=== PATIENT | male | born 1935 | race Caucasian/White ===

== ENCOUNTER 2017-02-10 13:07 | Inpatient (IN) | payer OTHER ==
[~2017-02-10] VITALS: Ht 182.9 cm; Wt 77.6 kg
[2017-02-10 14:51] LABS: BASOPHIL % 0.6 % (0-2); PLATELET COUNT 141 x10^3mcL (130-400); RED CELL DISTRIBUTION WIDTH 14.3 % (11.5-14.5)
[2017-02-10 14:56] LABS: microscopic required? NO
[2017-02-10 15:14] LABS: UA SPECIFIC GRAVITY 1.015 (1.005-1.035)
[2017-02-10 15:14] LABS: ALKALINE PHOSPHATASE 93 U/L (46-116); ALT/SGPT 33 U/L (16-63); AST/SGOT 32 U/L (15-37); BILIRUBIN TOTAL 0.9 mg/dL (0.20-1.00); CALCIUM 8.2 mg/dL (8.5-10.1); CARBON DIOXIDE 25.3 mmol/L (21-32); CHLORIDE SERUM 106 mmol/L (98-107); CREATININE SERUM 0.8 mg/dL (0.7-1.3); GLUCOSE SERUM 109 mg/dL (74-106); MAGNESIUM 1.8 mg/dL (1.8-2.4); PHOSPHOROUS 2.4 mg/dL (2.5-4.9); POTASSIUM SERUM 3.7 mmol/L (3.5-5.1); SODIUM SERUM 136 mmol/L (136-145); TOTAL PROTEIN, SERUM 6.5 g/dL (6.4-8.2)
[2017-02-10 15:15] LABS: ALBUMIN 3.2 g/dL (3.4-5.0); CHOLESTEROL 116 mg/dL (<200); HDL CHOLESTEROL 67 mg/dL (40-60)
[2017-02-10 15:16] LABS: urine erythrocyte NEGATIVE (NEGATIVE)
[2017-02-10] MEDS ORDERED: DIGOXIN0.125 M1 PO (17:24)
[2017-02-10] MEDS ORDERED: SPIRONOLACTONE25 MG PO (17:25)
[2017-02-10] MEDS ORDERED: NAMZARIC1 ECC PO (17:26)
[2017-02-10] MEDS ORDERED: DONEPEZIL HYDRO10 M2 PO (17:28)
[2017-02-10 18:12] VITALS: BP 161/98
[2017-02-10 18:21] VITALS: Ht 182.9 cm; Wt 77.6 kg
[2017-02-10 19:41] LABS: T3 TOTAL 0.8 ng/mL
[2017-02-10 19:52] LABS: CHOLESTEROL/HDL RATIO 1.6
[2017-02-10 20:07] LABS: FREE T4 1.24 ng/dL (0.76-1.46); FREE THYROXINE INDEX 2.5 ug/dL (1.4-4.5); T4(THYROXINE) 6.7 ug/dL (4.7-13.3)
[2017-02-10 20:54] VITALS: BP 148/79
[2017-02-11 06:30] LABS: BASOPHIL % 0.5 % (0-2); PLATELET COUNT 149 x10^3mcL (130-400); RED CELL DISTRIBUTION WIDTH 14.2 % (11.5-14.5)
[2017-02-11 06:33] VITALS: BP 143/95
[2017-02-11 06:33] LABS: CALCIUM 8.8 mg/dL (8.5-10.1); CHLORIDE SERUM 107 mmol/L (98-107); GLUCOSE SERUM 105 mg/dL (74-106); MAGNESIUM 1.9 mg/dL (1.8-2.4); PHOSPHOROUS 2.8 mg/dL (2.5-4.9); POTASSIUM SERUM 4.4 mmol/L (3.5-5.1); SODIUM SERUM 141 mmol/L (136-145)
[2017-02-11 10:02] VITALS: BP 146/90
[2017-02-11 12:40] VITALS: BP 164/94
[2017-02-11 17:15] VITALS: BP 144/81
[2017-02-11 21:17] VITALS: BP 124/70
[2017-02-12 05:58] VITALS: BP 135/67
[2017-02-12 09:31] VITALS: BP 135/83
[2017-02-12 13:30] VITALS: BP 118/68
[2017-02-12 14:20] VITALS: BP 135/83
[2017-02-12] MEDS ORDERED: ARI10 PO (15:23)
[2017-02-12] MEDS ORDERED: DIG125 PO (15:24)
[2017-02-12] MEDS ORDERED: XARELTO20 M1 PO (15:24)
[2017-02-12] MEDS ORDERED: ZES20 PO (15:25)
[2017-02-12] MEDS ORDERED: ALD25 PO (15:25)
[2017-02-12] MEDS ORDERED: COREG12.5 MG PO (15:25)
== END 2017-02-12 16:19 | disposition home health service (06) | DRG 640 ==
LOC: ED 13:07 → DU 17:13 → MU 02-12 13:43
PROVIDERS: Emergency Medicine; ADMIT Family Medicine
DX: E86.0 Dehydration (principal); G93.41 Metabolic encephalopathy; E44.0 Moderate protein-calorie malnutrition; F03.90 Unspecified dementia, unspecified severity, without behavioral disturbance, psychotic disturbance, mood disturbance, and anxiety; I48.91 Unspecified atrial fibrillation; E83.51 Hypocalcemia; E83.39 Other disorders of phosphorus metabolism; I10 Essential (primary) hypertension; Z68.23 Body mass index [BMI] 23.0-23.9, adult; Z87.891 Personal history of nicotine dependence
CPT/HCPCS: 83880; 84439; 94150; J7030; Q0092

== ENCOUNTER 2018-02-04 14:07 | Inpatient (IN) | payer OTHER ==
[~2018-02-04] VITALS: Ht 185.4 cm; Wt 84.8 kg
[~2018-02-04 14:07] MED LIST: ALD25 PO; ARI10 PO; COREG12.5 MG PO; DIG125 PO; DIGOXIN0.125 M1 PO; DONEPEZIL HYDRO10 M2 PO; NAMZARIC1 ECC PO; SPIRONOLACTONE25 MG PO; XARELTO20 M1 PO; ZES20 PO
[2018-02-04 14:11] VITALS: Ht 185.4 cm; Wt 84.8 kg
[2018-02-04 15:12] LABS: BASOPHIL % 0.2 % (0-2); PLATELET COUNT 181 x10^3mcL (130-400); RED CELL DISTRIBUTION WIDTH 13.9 % (11.5-14.5)
[2018-02-04 15:25] LABS: CALCIUM 8.5 mg/dL (8.5-10.1); CARBON DIOXIDE 30.1 mmol/L (21-32); CHLORIDE SERUM 101 mmol/L (98-107); CREATININE SERUM 1.2 mg/dL (0.7-1.3); GLUCOSE SERUM 152 mg/dL (74-106); POTASSIUM SERUM 3.9 mmol/L (3.5-5.1); SODIUM SERUM 137 mmol/L (136-145)
[2018-02-04] MEDS ORDERED: CARVEDILOL12.5 M1 PO (15:25)
[2018-02-04] MEDS ORDERED: ATIVAN1 MG PO (15:26)
[2018-02-04] MEDS ORDERED: LIPI20 PO (15:26)
[2018-02-04] MEDS ORDERED: DEPAKOTE ER500 MG PO (15:27)
[2018-02-04] MEDS ORDERED: HALOPERIDOL2 MG PO (15:28)
[2018-02-04] MEDS ORDERED: NAMENDA10 M2 PO (15:29)
[2018-02-04] MEDS ORDERED: MOM PO (15:30)
[2018-02-04 15:32] LABS: ALKALINE PHOSPHATASE 133 U/L (46-116); ALT/SGPT 30 U/L (16-63); AST/SGOT 21 U/L (15-37); BILIRUBIN TOTAL 0.7 mg/dL (0.20-1.00); TOTAL PROTEIN, SERUM 6.4 g/dL (6.4-8.2)
[2018-02-04 15:33] LABS: ALBUMIN 2.4 g/dL (3.4-5.0); CHOLESTEROL 102 mg/dL (<200)
[2018-02-04 16:55] LABS: UA SPECIFIC GRAVITY >=1.030 (1.005-1.035); microscopic required? YES; urine erythrocyte 3+ (NEGATIVE)
[2018-02-04 17:27] LABS: AMPHETAMINE QUAL UR NONE DETECTED (See below)
[2018-02-04 20:10] VITALS: BP 139/72
[2018-02-05 05:41] VITALS: BP 108/73
[2018-02-05 06:18] LABS: BASOPHIL % 0.3 % (0-2); PLATELET COUNT 192 x10^3mcL (130-400); RED CELL DISTRIBUTION WIDTH 14.1 % (11.5-14.5)
[2018-02-05 06:41] LABS: CALCIUM 8.7 mg/dL (8.5-10.1); CHLORIDE SERUM 99 mmol/L (98-107); GLUCOSE SERUM 101 mg/dL (74-106); MAGNESIUM 2.1 mg/dL (1.8-2.4); PHOSPHOROUS 3.6 mg/dL (2.5-4.9); SODIUM SERUM 138 mmol/L (136-145)
[2018-02-05 09:03] VITALS: BP 139/53
[2018-02-05 12:05] VITALS: BP 113/41
[2018-02-05 16:40] VITALS: BP 139/60
[2018-02-05 21:02] VITALS: BP 133/62
[2018-02-06 06:30] VITALS: BP 142/78
[2018-02-06 08:26] VITALS: BP 146/64
[2018-02-06 13:16] VITALS: BP 146/64
[2018-02-06 13:22] VITALS: BP 113/45
[2018-02-06 13:26] LABS: CALCIUM 8.7 mg/dL (8.5-10.1); CARBON DIOXIDE 31.6 mmol/L (21-32); CHLORIDE SERUM 110 mmol/L (98-107); CREATININE SERUM 1.1 mg/dL (0.7-1.3); GLUCOSE SERUM 129 mg/dL (74-106); POTASSIUM SERUM 4.6 mmol/L (3.5-5.1); SODIUM SERUM 147 mmol/L (136-145)
[2018-02-06 13:31] LABS: BASOPHIL % 0.8 % (0-2); PLATELET COUNT 173 x10^3mcL (130-400); RED CELL DISTRIBUTION WIDTH 14.2 % (11.5-14.5)
[2018-02-06 17:30] VITALS: BP 118/47
[2018-02-07 06:17] VITALS: BP 148/65
[2018-02-07 09:02] VITALS: BP 101/51
[2018-02-07 13:30] VITALS: BP 130/49
[2018-02-07 18:36] VITALS: BP 120/54
[2018-02-07 21:18] VITALS: BP 121/48
[2018-02-08 05:57] VITALS: BP 122/57
[2018-02-08 08:25] VITALS: BP 121/76
[2018-02-08 11:50] VITALS: BP 98/42
[2018-02-08 17:33] VITALS: BP 108/39
[2018-02-08 17:34] VITALS: BP 108/39
[2018-02-08 21:28] VITALS: BP 128/76
== END 2018-02-08 22:10 | DRG 155 ==
LOC: ED 14:07 → DU 17:54 → EDBEDREQ 18:00 → DU 19:09
PROVIDERS: Internal Medicine; Internal Medicine Pulmonary Disease; Specialist
DX: S01.21XA Laceration without foreign body of nose, initial encounter (principal); E44.1 Mild protein-calorie malnutrition; I48.2 Chronic atrial fibrillation; G20 Parkinson's disease; F02.80 Dementia in other diseases classified elsewhere, unspecified severity, without behavioral disturbance, psychotic disturbance, mood disturbance, and anxiety; I10 Essential (primary) hypertension; E78.5 Hyperlipidemia, unspecified; I25.10 Atherosclerotic heart disease of native coronary artery without angina pectoris; Z68.20 Body mass index [BMI] 20.0-20.9, adult; Z79.01 Long term (current) use of anticoagulants; W01.0XXA Fall on same level from slipping, tripping and stumbling without subsequent striking against object, initial encounter; Y92.092 Bedroom in other non-institutional residence as the place of occurrence of the external cause
CPT/HCPCS: 90715; 97110-GP; 97116-GP; 97530-GP; G0480; J0696; J7030